=== PATIENT | male | born 2000 | race Caucasian/White ===

== ENCOUNTER 2020-05-30 19:49 | Emergency (ER) | payer OTHER ==
[~2020-05-30 19:49] MED LIST: BACITRACIN15 GM TOP
== END 2020-05-30 21:08 | disposition home or self-care (01) ==
LOC: FER 19:49
DX: S92.352A Displaced fracture of fifth metatarsal bone, left foot, initial encounter for closed fracture (principal); X50.1XXA Overexertion from prolonged static or awkward postures, initial encounter; Y93.67 Activity, basketball
CPT/HCPCS: 73630

== ENCOUNTER 2020-12-23 17:18 | Emergency (ER) | payer OTHER ==
[2020-12-23] MEDS ORDERED: BACTRIM DS TAB1 EACH PO (20:10)
== END 2020-12-23 20:24 | disposition home or self-care (01) ==
LOC: FER 17:18
DX: S00.462A Insect bite (nonvenomous) of left ear, initial encounter (principal); H60.12 Cellulitis of left external ear; W57.XXXA Bitten or stung by nonvenomous insect and other nonvenomous arthropods, initial encounter
CPT/HCPCS: 99282